=== PATIENT | female | born 1965 | race African-American/Black ===

== ENCOUNTER 2021-08-12 20:00 | Inpatient (IN) | payer OTHER, MEDICAID ==
[~2021-08-12] VITALS: Ht 167.6 cm; Wt 76.7 kg
--- NOTE | 2021-08-12 20:03 | NUR ---
Placed in room 06 . Placed on cardiac sonographer, blood pressure machine and pulse oximeter. To gown for exam. Side rails up.
[2021-08-12] MEDS ORDERED: ASPIRIN 81 MG TAB.CHEW PO ONE (20:15)
--- NOTE | 2021-08-12 20:45 | NUR ---
in to see patient.
[2021-08-12 20:48] VITALS: BP_SYST 145
--- NOTE | 2021-08-12 20:52 | NUR ---
patient arrives with chuck stating full code
[2021-08-12] MEDS ORDERED: BUDE0.5A INH (20:57)
[2021-08-12] MEDS ORDERED: DOCU100T9 GT (20:57)
[2021-08-12] MEDS ORDERED: HYDR-3927 GT (20:57)
[2021-08-12] MEDS ORDERED: DUL5 GT (20:57)
[2021-08-12] MEDS ORDERED: CHLO473M5 PO (20:57)
[2021-08-12] MEDS ORDERED: PULMOCARE GT (20:57)
[2021-08-12] MEDS ORDERED: DIPH25TA62 GT (20:57)
[2021-08-12] MEDS ORDERED: MULT-1193 GT (20:57)
[2021-08-12] MEDS ORDERED: OMEP20CA4 GT (20:57)
[2021-08-12] MEDS ORDERED: LIDVIS100 GT (20:57)
[2021-08-12] MEDS ORDERED: MELA3TAB41 GT (20:57)
[2021-08-12] MEDS ORDERED: ALBU2.5V7 INH ×2 (20:57)
[2021-08-12] MEDS ORDERED: LACT10SO6 GT (20:57)
[2021-08-12] MEDS ORDERED: ASCO500T20 GT (20:57)
[2021-08-12] MEDS ORDERED: RILU50TA8 GT (20:57)
[2021-08-12] MEDS ORDERED: POLY119P15 GT (20:57)
[2021-08-12] MEDS ORDERED: FOLI-43 GT (20:57)
--- NOTE | 2021-08-12 20:57 | NUR ---
COVID AND MRSA SWAB DONE AT BEDSIDE
--- NOTE | 2021-08-12 20:58 | NUR ---
Medication reconciliation completed with information provided by [facility]. Any prior medication reconciliation on file was reviewed and corrected.
--- NOTE | 2021-08-12 21:03 | NUR ---
patient is on the vent. Stated that she came in with chest pain 8/10 but now she does not feel any chest pain after the nitro spray. She states her pain is 3/10.
[2021-08-12] MEDS ORDERED: PIPERACILLIN/TAZO 3.38 GM in D5W 50 ML IV ONE (21:30)
[2021-08-12] MEDS ORDERED: VANCOMYCIN HCL 1,000 MG in D5W 250 ML IV ONE (21:30)
[2021-08-12] MEDS ORDERED: PIPERACILLIN/TAZOBACTAM 3.375 GM/VIAL (ZOSYN) IV ONE (21:39)
--- NOTE | 2021-08-12 22:17 | NUR ---
Verbal order received by Dr Ilya Us for Zofran 4 mg IVP and Morphine 4mg IVP for chest pain.
[2021-08-12] MEDS ORDERED: MORPHINE 4 MG INJ. 4 MG/ML VIAL IVP ONE (22:30)
[2021-08-12] MEDS ORDERED: ONDANSETRON HCL 4 MG/2 ML VIAL IVP ONE (22:30)
[2021-08-12 22:37] LABS: BASOPHILS # (AUTO) 0.1 K/uL (0.0-0.2); BASOPHILS % (AUTO) 0.5 % (0.0-2.0); EOSINOPHILS # (AUTO) 0.1 K/uL (0.0-0.4); EOSINOPHILS % (AUTO) 0.8 % (0.0-4.0); LYMPHOCYTES # (AUTO) 2.1 K/uL (1.0-5.5); LYMPHOCYTES % (AUTO) 12.8 % (20.5-51.5); MEAN CORPUSCULAR HEMOGLOBIN 31 pg (27-31); MEAN CORPUSCULAR HGB CONC 33 % (32-36); MEAN CORPUSCULAR VOLUME 93 fL (79.0-98.0); MONOCYTES # (AUTO) 1.2 K/uL (0.0-1.0); MONOCYTES % (AUTO) 7.5 % (1.7-9.3); NEUTROPHILS # (AUTO) 12.7 K/uL (1.8-7.7); NEUTROPHILS % (AUTO) 78.4 % (40.0-70.0); PLATELET COUNT (AUTO) 242 K/uL (130-430); RED BLOOD CELL COUNT(AUTO) 2.01 MIL/uL (4.2-6.2); RED CELL DISTRIBUTION WIDTH 15.4 % (9.0-15.0); WHITE BLOOD COUNT (AUTO) 16.1 K/uL (4.8-10.8)
[2021-08-12 22:45] LABS: HEMOGLOBIN 6.2 g/dL (12.0-16.0)
[2021-08-12 22:46] LABS: HEMATOCRIT 18.6 % (36-48)
[2021-08-12] MEDS ORDERED: VANCOMYCIN HCL 1000 MG/VIAL IV ONE (22:46)
[2021-08-12 22:51] LABS: ANION GAP 5 (5-15); CALCIUM 9.3 mg/dL (8.4-11.0); CHLORIDE 101 mmol/L (98-107); CREATININE 0.62 mg/dL (0.55-1.30); GLUCOSE 111 mg/dL (70-99); POTASSIUM 4.1 mmol/L (3.5-5.1); SODIUM SERUM 135 mmol/L (136-145); UREA NITROGEN, BLOOD 38 mg/dL (8-21)
[2021-08-12 22:53] LABS: GFR AFRICAN AMERICAN 129 mL/min (>90)
[2021-08-12 23:00] LABS: ALANINE AMINOTRANSFERASE 24 U/L (12-78); ALBUMIN 2.8 g/dL (3.4-4.8); ASPARTATE AMINOTRANSFERASE 17 U/L (10-37); TOTAL BILIRUBIN 0.3 mg/dL (0.0-1.0)
[2021-08-12] MEDS ORDERED: APIXABAN 2.5 MG TABLET PO SCH (23:00)
[2021-08-13] MEDS ORDERED: PANTOPRAZOLE SODIUM 40 MG/VIAL (PROTONIX) IVP ONE (01:30)
[2021-08-13] MEDS ORDERED: ONDANSETRON HCL 4 MG/2 ML VIAL IVP PRN (02:45)
[2021-08-13] MEDS ORDERED: MORPHINE 4 MG INJ. 4 MG/ML VIAL IVP ONE (03:00)
--- NOTE | 2021-08-13 03:35 | NUR ---
Admit bed requested Patient will be admitted to care of Dr Rubio .. Admitted to Tele unit. Diagnosis GI bleed Inpatient (Yes or No) Yes Observation (Yes or No) No Orientation concerns or request close to nursing station (Yes or No) No Covid Status negative On vent or bipap yes Isolation requirements No Needs a sitter No From Home (Yes or if No enter name of facility) No Requires Dialysis (Yes or No) No Med Rec Completed (Yes of No) Yes
--- NOTE | 2021-08-13 04:30 | NUR ---
Patient will be admitted to care of dr woodward. Admitted to unit. Will go to room . Belongings list completed. Complete and up to date summary report printed. SBAR report to be given at bedside with opportunity for questions.
[2021-08-13 05:28] VITALS: BP_SYST 110
[2021-08-13 05:38] VITALS: BP_SYST 115
--- NOTE | 2021-08-13 06:08 | NUR ---
Consultation Paged Reason for Consultation: GI BLEED Was consult called: Y Person who was notified: Ariela Consulting Physician: Dr. Montanez (Corby Lei is special collections librarian) Ordering Physician: Dr. Rubio
--- NOTE | 2021-08-13 06:52 | NUR ---
PT ADMITTED TO [facility] FLOOR , ADMISSION DX GI BLEEDING AND CHEST PAIN, HMG 6.1 ONE UNIT OF RBCS WAS TRANSFUSED, SHE HAS ORDER FOR ANOTHER UNIT STANDBY AFTER Hmgb CHECK.. she on vent, with history of chronic respiratory failure
[2021-08-13] MEDS ORDERED: PANTOPRAZOLE SODIUM 40 MG/VIAL (PROTONIX) ONE (07:00)
[2021-08-13] MEDS: PANTOPRAZOLE SODIUM 40 MG in NS 50 ML IV SCH ×5 (07:45→23:12)
[2021-08-13 08:00] VITALS: BP_SYST 102
[2021-08-13 09:07] LABS: BASOPHILS % (AUTO) 0.2 % (0.0-2.0); EOSINOPHILS % (AUTO) 0.1 % (0.0-4.0); HEMOGLOBIN 7.1 g/dL (12.0-16.0); LYMPHOCYTES # (AUTO) 1.5 K/uL (1.0-5.5); MEAN CORPUSCULAR HEMOGLOBIN 31 pg (27-31); MEAN CORPUSCULAR HGB CONC 33 % (32-36); MEAN CORPUSCULAR VOLUME 94 fL (79.0-98.0); MONOCYTES # (AUTO) 1.5 K/uL (0.0-1.0); MONOCYTES % (AUTO) 8.3 % (1.7-9.3); NEUTROPHILS # (AUTO) 15.2 K/uL (1.8-7.7); NEUTROPHILS % (AUTO) 83.4 % (40.0-70.0); PLATELET COUNT (AUTO) 189 K/uL (130-430); RED BLOOD CELL COUNT(AUTO) 2.28 MIL/uL (4.2-6.2); RED CELL DISTRIBUTION WIDTH 14.7 % (9.0-15.0); WHITE BLOOD COUNT (AUTO) 18.3 K/uL (4.8-10.8)
[2021-08-13] MEDS: D5LR 1,000 ML IV SCH ×2 (09:11→12:45)
[2021-08-13 09:20] LABS: HEMATOCRIT 21.4 % (36-48)
[2021-08-13] MEDS: MORPHINE 4 MG INJ. 4 MG/ML VIAL IVP PRN ×2 (09:52→22:42)
[2021-08-13] MEDS ORDERED: NALOXONE HCL 0.4 MG/ML AMP (NARCAN) IVP PRN (10:15)
--- NOTE | 2021-08-13 10:28 | NUR ---
CONSULTATION PAGED/CALLED Reason for Consultation: CP Person Who was Notified: DR LOFTON OFFICE Consulting Physician: VENUS MAYA Ordering Physician: HORTENCIA VALENTIN
--- NOTE | 2021-08-13 10:39 | NUR ---
CONSULTATION PAGED/CALLED Reason for Consultation: RESP FAILURE Person Who was Notified: JUAQUIN Consulting Physician: FRANCISCA CAIN Ordering Physician: HORTENCIA VALENTIN
[2021-08-13 11:38] VITALS: BP_SYST 111
[2021-08-13] MEDS: DIPHENHYDRAMINE HCL 25 MG CAPSULE GT PRN ×2 (12:21→22:41)
[2021-08-13 15:39] VITALS: BP_SYST 118
[2021-08-13] MEDS: BUDESONIDE 0.5 MG/2 ML AMPUL.NEB INH SCH (19:55)
[2021-08-13 20:11] VITALS: BP_SYST 95
--- NOTE | 2021-08-13 20:16 | NUR ---
RECEIVED PT LYING DOWN, NO DISTRESS NOTED, DENIES PAIN. ON [facility] VENT SETTING TV-35, AC:16, PEE-5. O2 SAT 100%. COMMUNICATING VIA IPAD. IV TO RT WRIST SITE CDI. Addendum: 08/13/21 at 2319 by [employer] special education teacher 2316: PT ID IS NOT WORKING, NOTIFIED CHARGE NURSE TO PLEASE PRINT ANOTHER. Addendum: 08/14/21 at 0023 by [employer] special education teacher 0020: @2245 PT'S DAUGHTER BROUGHT CORRECT TUBING FOR PT'S GT. STARTED FEEDING AT 2245. STOPPED FEEDING AT 0000. PT IS NOW NPO. PT REFUSED REPOSITIONING AT THIS TIME. WILL ATTEMPT AGAIN SHORTLY Addendum: 08/14/21 at 0452 by Sierra Spence RN 0400: PT DOES NOT WANT TO BE REPOSITIONED, SHE STATED "I WANT TO SLEEP, I NEED MY REST"
[2021-08-13] MEDS: LACTULOSE 20 GM/30 ML UDC GT SCH (21:00)
[2021-08-13] MEDS: LIDOCAINE VISCOUS 2%, 15 ML UDC MM SCH (21:00)
[2021-08-13] MEDS: DOCUSATE SODIUM 100 MG/10 ML UDC GT SCH (21:00)
[2021-08-13 21:16] LABS: TOTAL IRON BIND. CAPACITY 183 ug/dL (250-450)
[2021-08-13] MEDS: BISACODYL 5 MG TABLET.DR (DULCOLAX) GT SCH (22:41)
[2021-08-13] MEDS: FOLIC ACID 1 MG TABLET GT SCH (22:41)
[2021-08-13] MEDS: MELATONIN 3 MG TABLET GT SCH (22:56)
[2021-08-13] MEDS ORDERED: MELATONIN 3 MG TABLET ONE (22:57)
[2021-08-13] MEDS: CHLORHEXIDINE GLUCONATE 15 ML/DOSE, 480 ML MM SCH (23:00)
[2021-08-14 00:11] VITALS: BP_SYST 110
[2021-08-14 00:23] VITALS: BP_SYST 97
[2021-08-14] MEDS: PANTOPRAZOLE SODIUM 40 MG in NS 50 ML IV SCH ×4 (03:45→18:02)
[2021-08-14] MEDS: MORPHINE 4 MG INJ. 4 MG/ML VIAL IVP PRN ×3 (06:05→21:09)
[2021-08-14 06:18] LABS: BASOPHILS % (AUTO) 0.2 % (0.0-2.0); EOSINOPHILS # (AUTO) 0.1 K/uL (0.0-0.4); EOSINOPHILS % (AUTO) 0.6 % (0.0-4.0); HEMOGLOBIN 7.2 g/dL (12.0-16.0); LYMPHOCYTES # (AUTO) 1.2 K/uL (1.0-5.5); LYMPHOCYTES % (AUTO) 8.2 % (20.5-51.5); MEAN CORPUSCULAR HEMOGLOBIN 30 pg (27-31); MEAN CORPUSCULAR HGB CONC 33 % (32-36); MEAN CORPUSCULAR VOLUME 90 fL (79.0-98.0); MONOCYTES % (AUTO) 6.8 % (1.7-9.3); NEUTROPHILS # (AUTO) 12.1 K/uL (1.8-7.7); NEUTROPHILS % (AUTO) 84.2 % (40.0-70.0); PLATELET COUNT (AUTO) 163 K/uL (130-430); RED CELL DISTRIBUTION WIDTH 16.7 % (9.0-15.0); WHITE BLOOD COUNT (AUTO) 14.4 K/uL (4.8-10.8)
[2021-08-14 06:50] LABS: ALBUMIN 2.4 g/dL (3.4-4.8); CALCIUM 8.4 mg/dL (8.4-11.0); CREATININE 0.49 mg/dL (0.55-1.30); POTASSIUM 3.7 mmol/L (3.5-5.1); TOTAL BILIRUBIN 0.4 mg/dL (0.0-1.0)
[2021-08-14] MEDS ORDERED: SIMETHICONE 40 MG/0.6 ML ML ONE (07:19)
[2021-08-14] MEDS ORDERED: MEPERIDINE 100 MG INJ. 100 MG/ML VIAL ONE (07:20)
[2021-08-14] MEDS ORDERED: BENZOCAINE 20% 0.5mL UD SPRAY MM ONE (07:29)
[2021-08-14] MEDS: MIDAZOLAM HCL 5 MG/5 ML VIAL ONE ×5 (07:50→08:02)
[2021-08-14] MEDS: fentaNYL CITRATE/PF 100 MCG/2 ML AMP ONE ×3 (07:50→07:55)
[2021-08-14 08:00] VITALS: BP_SYST 104
[2021-08-14] MEDS ORDERED: DIPHENHYDRAMINE INJ 50 MG/ML VIAL IVP ONE (08:04)
[2021-08-14] MEDS ORDERED: DIPHENHYDRAMINE INJ 50 MG/ML VIAL ONE ×2 (08:08→08:30)
[2021-08-14] MEDS ORDERED: MIDAZOLAM HCL 5 MG/5 ML VIAL ONE (08:08)
[2021-08-14] MEDS ORDERED: MIDAZOLAM HCL 5 MG/5 ML VIAL IVP ONE (08:09)
[2021-08-14] MEDS: D5LR 1,000 ML IV SCH ×3 (08:45→18:01)
[2021-08-14] MEDS ORDERED: OMEPRAZOLE Non-Formulary 20 MG CAPSULE.DR GT SCH (09:00)
[2021-08-14] MEDS: DOCUSATE SODIUM 100 MG/10 ML UDC GT SCH ×2 (09:00→21:00)
[2021-08-14] MEDS: RILUZOLE 50 MG TABLET GT SCH ×2 (09:00→21:06)
[2021-08-14] MEDS: POLYETHYLENE GLYCOL 3350, 17 GM/ POWD.PACK GT SCH (09:00)
[2021-08-14] MEDS: BUDESONIDE 0.5 MG/2 ML AMPUL.NEB INH SCH ×2 (09:03→20:14)
[2021-08-14 09:06] LABS: HEMATOCRIT 21.6 % (36-48)
[2021-08-14] MEDS: ASCORBIC ACID 500 MG TABLET GT SCH (09:39)
[2021-08-14] MEDS: CHLORHEXIDINE GLUCONATE 15 ML/DOSE, 480 ML MM SCH ×2 (09:39→21:33)
[2021-08-14] MEDS: MULTIVITS,CA,MINERALS/IRON/FA 1 TABLET PO SCH (09:39)
[2021-08-14] MEDS: DIPHENHYDRAMINE HCL 25 MG CAPSULE GT PRN (09:39)
[2021-08-14] MEDS: SOD FERRIC GLUC COMPLEX/SUC 125 MG in NS 100 ML IV SCH (12:12)
[2021-08-14 12:22] VITALS: BP_SYST 91
[2021-08-14 16:14] VITALS: BP_SYST 96
[2021-08-14] MEDS ORDERED: BISACODYL 5 MG TABLET.DR (DULCOLAX) PO ONE (17:00)
[2021-08-14] MEDS ORDERED: GOLYTELY / COLYTE SOLUTION 4 LITERS PO ONE (18:00)
--- NOTE | 2021-08-14 19:14 | NUR ---
RECEIVED PT LYING IN BED, NO DISTRESS NOTED, DENIES PAIN. EXPLAINED POC IN REGARDS TO BOWEL PREP, VERBALIZED UNDERSTANDING. Addendum: 08/15/21 at 0103 by William Spence RN 5: PT IS ASKING FOR GOLYTELY TO BE GIVEN INCREMENTS. THEREFORE BE GIVING 400ML EVERY 2 HOURS Addendum: 08/15/21 at 010 by William Spence RN 106: GT CONNECTOR WAS LEAKING CHANGED PORT. Addendum: 08/15/21 at 0224 by [employer] cpas 5: PT REFUSED GOLYTELY AT THIS TIME. STATES HER STOMACH FEELS UNCOMFORTABLE. ENCOURAGED PT IF NOT NOW THEN AT 040, PT STATED "WELL SEE" Addendum: 08/15/21 at 0459 by [employer] cpas 0430: PT REFUSED GOLYTELY.
[2021-08-14 20:00] VITALS: BP_SYST 121
[2021-08-14] MEDS: BISACODYL 5 MG TABLET.DR (DULCOLAX) GT SCH (21:00)
[2021-08-14] MEDS: LACTULOSE 20 GM/30 ML UDC GT SCH (21:00)
[2021-08-14] MEDS: LIDOCAINE VISCOUS 2%, 15 ML UDC MM SCH (21:00)
[2021-08-14] MEDS: FOLIC ACID 1 MG TABLET GT SCH (21:06)
[2021-08-14] MEDS: MELATONIN 3 MG TABLET GT SCH (21:07)
[2021-08-15] VITALS: BP_SYST 115
[2021-08-15] MEDS: PANTOPRAZOLE SODIUM 40 MG in NS 50 ML IV SCH (00:25)
[2021-08-15] MEDS: D5LR 1,000 ML IV SCH ×2 (04:45→14:45)
[2021-08-15 06:05] LABS: BASOPHILS % (AUTO) 0.5 % (0.0-2.0); EOSINOPHILS # (AUTO) 0.2 K/uL (0.0-0.4); EOSINOPHILS % (AUTO) 2.2 % (0.0-4.0); LYMPHOCYTES # (AUTO) 1.8 K/uL (1.0-5.5); LYMPHOCYTES % (AUTO) 18.8 % (20.5-51.5); MEAN CORPUSCULAR HEMOGLOBIN 31 pg (27-31); MEAN CORPUSCULAR HGB CONC 34 % (32-36); MEAN CORPUSCULAR VOLUME 91 fL (79.0-98.0); MONOCYTES # (AUTO) 0.8 K/uL (0.0-1.0); MONOCYTES % (AUTO) 8.2 % (1.7-9.3); NEUTROPHILS # (AUTO) 6.8 K/uL (1.8-7.7); NEUTROPHILS % (AUTO) 70.3 % (40.0-70.0); PLATELET COUNT (AUTO) 165 K/uL (130-430); RED BLOOD CELL COUNT(AUTO) 2.11 MIL/uL (4.2-6.2); RED CELL DISTRIBUTION WIDTH 16.5 % (9.0-15.0); RETICULOCYTE COUNT 5.7 % (0.5-1.5); WHITE BLOOD COUNT (AUTO) 9.6 K/uL (4.8-10.8)
[2021-08-15 06:26] LABS: CALCIUM 8.6 mg/dL (8.4-11.0); CREATININE 0.5 mg/dL (0.55-1.30); POTASSIUM 3.3 mmol/L (3.5-5.1)
[2021-08-15] MEDS: BUDESONIDE 0.5 MG/2 ML AMPUL.NEB INH SCH ×2 (07:09→19:11)
[2021-08-15 07:26] LABS: HEMATOCRIT 19.3 % (36-48); HEMOGLOBIN 6.5 g/dL (12.0-16.0)
[2021-08-15] MEDS ORDERED: ONDANSETRON HCL 4 MG/2 ML VIAL ONE (07:26)
[2021-08-15] MEDS ORDERED: MEPERIDINE 100 MG INJ. 100 MG/ML VIAL ONE (07:27)
[2021-08-15] MEDS ORDERED: MIDAZOLAM HCL 5 MG/5 ML VIAL ONE (07:39)
[2021-08-15 08:00] VITALS: BP_SYST 112
[2021-08-15] MEDS: MIDAZOLAM HCL 5 MG/5 ML VIAL ONE ×2 (08:13→08:15)
[2021-08-15] MEDS ORDERED: BISACODYL 5 MG TABLET.DR (DULCOLAX) PO ONE (08:45)
[2021-08-15] MEDS ORDERED: MAGNESIUM CITRATE 300 ML ORAL SOLUTION PO ONE (08:45)
[2021-08-15] MEDS ORDERED: DIPHENHYDRAMINE INJ 50 MG/ML VIAL ONE (08:54)
[2021-08-15] MEDS: POLYETHYLENE GLYCOL 3350, 17 GM/ POWD.PACK GT SCH (09:55)
[2021-08-15] MEDS: RILUZOLE 50 MG TABLET GT SCH ×2 (09:58→21:00)
[2021-08-15] MEDS: ASCORBIC ACID 500 MG TABLET GT SCH (09:58)
[2021-08-15] MEDS: MULTIVITS,CA,MINERALS/IRON/FA 1 TABLET PO SCH (09:58)
[2021-08-15] MEDS: DOCUSATE SODIUM 100 MG/10 ML UDC GT SCH ×2 (10:01→20:45)
[2021-08-15] MEDS: CHLORHEXIDINE GLUCONATE 15 ML/DOSE, 480 ML MM SCH ×2 (10:02→21:00)
[2021-08-15] MEDS ORDERED: POTASSIUM CHLORIDE 20 MEQ/PKT PACKET PO ONE (10:30)
[2021-08-15] MEDS: SOD FERRIC GLUC COMPLEX/SUC 125 MG in NS 100 ML IV SCH (12:17)
[2021-08-15 12:52] VITALS: BP_SYST 118
--- NOTE | 2021-08-15 13:45 | NUR ---
blood transfusion started,observed for any transfusion reaction
--- NOTE | 2021-08-15 14:26 | NUR ---
Dietitian Recommendations * Consider ST swallow eval prior to PO diet advancement (PO diet BANKRUPTCY PROCESSOR: Regular/Pureed per nursing assessment) * Consider Vital AF 1.2 at 60 ml/hr (goal rate), Free Water Flush: 150 ml Q6h via GT if/when medically appropriate Provides: 1728 kcal/day, 108 gm protein/day, and 1768 ml free water/day Meets: 98% of lower end of estimated caloric needs, 92% of upper end of estimated protein needs, and 98% of lower end of estimated fluid needs LP, RD Please refer to Nutrition Assessment for details. Addendum: 08/15/21 at [address] Amended: Links added.
[2021-08-15 16:00] VITALS: BP_SYST 115
[2021-08-15] MEDS: MORPHINE 4 MG INJ. 4 MG/ML VIAL IVP PRN ×2 (17:26→23:12)
--- NOTE | 2021-08-15 17:40 | NUR ---
blood transfusion done at 1730 no reaction noted.
[2021-08-15] MEDS ORDERED: GOLYTELY / COLYTE SOLUTION 4 LITERS PO ONE (18:00)
--- NOTE | 2021-08-15 19:30 | NUR ---
Opening note Received report from day shift. Pt is a/o x4 trach to vent. No s/s of respiratory distress. Breathing even and unlabored. IV site is intact and patent with fluids running at ordered rate. Golytely at bedside to be continued for colonoscopy tomorrow. Fall and safety precautions in place with bed in lowest position, bed alarm on, and call light within reach.
[2021-08-15] MEDS: LACTULOSE 20 GM/30 ML UDC GT SCH (20:44)
[2021-08-15] MEDS: BISACODYL 5 MG TABLET.DR (DULCOLAX) GT SCH (20:44)
[2021-08-15] MEDS: DIPHENHYDRAMINE HCL 25 MG CAPSULE GT PRN (20:44)
[2021-08-15] MEDS: FOLIC ACID 1 MG TABLET GT SCH (20:44)
[2021-08-15] MEDS: LIDOCAINE VISCOUS 2%, 15 ML UDC MM SCH (21:00)
[2021-08-15] MEDS: MELATONIN 3 MG TABLET GT SCH (21:02)
--- NOTE | 2021-08-16 00:15 | NUR ---
Rounds Pt resting quietly in bed. Suctioned as needed. No s/s of acute distress. Fall and safety checks in place.
[2021-08-16 00:24] VITALS: BP_SYST 127
[2021-08-16] MEDS: D5LR 1,000 ML IV SCH ×2 (00:45→10:45)
[2021-08-16] MEDS: MORPHINE 4 MG INJ. 4 MG/ML VIAL IVP PRN ×2 (06:21→16:25)
--- NOTE | 2021-08-16 06:54 | NUR ---
Closing note Pt resting comfortably in bed. No s/s of respiratory distress. Breathing even and unlabored. Pt refused AM tap water enema and asked if it can be done later, will endorse to day shift RN. IV site intact and patent with fluids running at ordered rate. Fall and safety precautions in place with bed in lowest position, bed alarm on, and call light within reach
[2021-08-16] MEDS: BUDESONIDE 0.5 MG/2 ML AMPUL.NEB INH SCH ×2 (07:21→19:00)
[2021-08-16] MEDS ORDERED: BUDESONIDE 0.5 MG/2 ML AMPUL.NEB ONE (07:47)
[2021-08-16 08:00] VITALS: BP_SYST 115
--- NOTE | 2021-08-16 08:00 | NUR ---
Morning notes: Pt A/Ox4, resting in bed. NO s/s of respiratory or cardiac distress, Vent setting AC 14, Vt 450, O2 30%, PEEP 5. R hand IV site is clean dry and intact with ordered fluids running. Fall, safety and respiratory precautions in place, call light within reach, will continue to monitor.
[2021-08-16] MEDS: RILUZOLE 50 MG TABLET GT SCH (09:00)
[2021-08-16] MEDS: ASCORBIC ACID 500 MG TABLET GT SCH (09:22)
[2021-08-16] MEDS: MULTIVITS,CA,MINERALS/IRON/FA 1 TABLET PO SCH (09:22)
[2021-08-16] MEDS: DOCUSATE SODIUM 100 MG/10 ML UDC GT SCH (09:25)
[2021-08-16] MEDS: POTASSIUM CHLORIDE 20 MEQ/PKT PACKET PO SCH (09:25)
[2021-08-16] MEDS: POLYETHYLENE GLYCOL 3350, 17 GM/ POWD.PACK GT SCH (09:25)
[2021-08-16] MEDS ORDERED: DOCUSATE SODIUM 100 MG/10 ML UDC ONE (09:27)
[2021-08-16] MEDS: ALBUTEROL SULFATE 0.083% 2.5 MG/3 ML VIAL.NEB INH PRN (11:48)
[2021-08-16 12:00] VITALS: BP_SYST 135
[2021-08-16] MEDS: SOD FERRIC GLUC COMPLEX/SUC 125 MG in NS 100 ML IV SCH (12:37)
[2021-08-16 12:56] LABS: BASOPHILS % (AUTO) 0.5 % (0.0-2.0); EOSINOPHILS # (AUTO) 0.2 K/uL (0.0-0.4); EOSINOPHILS % (AUTO) 2.8 % (0.0-4.0); HEMATOCRIT 26.7 % (36-48); LYMPHOCYTES % (AUTO) 13.4 % (20.5-51.5); MEAN CORPUSCULAR HEMOGLOBIN 31 pg (27-31); MEAN CORPUSCULAR HGB CONC 34 % (32-36); MEAN CORPUSCULAR VOLUME 92 fL (79.0-98.0); MONOCYTES # (AUTO) 0.5 K/uL (0.0-1.0); MONOCYTES % (AUTO) 6.3 % (1.7-9.3); PLATELET COUNT (AUTO) 227 K/uL (130-430); RED BLOOD CELL COUNT(AUTO) 2.89 MIL/uL (4.2-6.2); RED CELL DISTRIBUTION WIDTH 15.6 % (9.0-15.0); WHITE BLOOD COUNT (AUTO) 7.8 K/uL (4.8-10.8)
[2021-08-16 13:08] LABS: CALCIUM 9.4 mg/dL (8.4-11.0); CREATININE 0.47 mg/dL (0.55-1.30); POTASSIUM 4.1 mmol/L (3.5-5.1)
[2021-08-16] MEDS ORDERED: SIMETHICONE 40 MG/0.6 ML ML ONE (13:29)
[2021-08-16] MEDS ORDERED: MEPERIDINE 100 MG INJ. 100 MG/ML VIAL ONE (13:29)
[2021-08-16] MEDS ORDERED: MIDAZOLAM HCL 5 MG/5 ML VIAL ONE (13:30)
[2021-08-16 16:25] VITALS: BP_SYST 130
[2021-08-16] MEDS ORDERED: iohexoL 300 mgI/mL, 150 ML INFUS..BTL IV ONE (18:10)
--- NOTE | 2021-08-16 18:55 | NUR ---
Closing notes: Pt A/Ox4, resting in bed. NO s/s of respiratory or cardiac distress, Vent setting AC 14, Vt 450, O2 30%, PEEP 5. R hand IV site is clean dry and intact with ordered fluids running. Fall, safety and respiratory precautions in place, call light within reach, will endorse to material handler 1st shift.
[2021-08-16] MEDS: LIDOCAINE VISCOUS 2%, 15 ML UDC MM SCH (21:00)
[2021-08-17] MEDS: ALBUTEROL SULFATE 0.083% 2.5 MG/3 ML VIAL.NEB INH PRN (00:21)
[2021-08-17] MEDS: LACTULOSE 20 GM/30 ML UDC GT SCH ×2 (00:38→21:00)
[2021-08-17] MEDS: BISACODYL 5 MG TABLET.DR (DULCOLAX) GT SCH ×2 (00:39→21:00)
[2021-08-17] MEDS: DOCUSATE SODIUM 100 MG/10 ML UDC GT SCH ×3 (00:39→21:00)
[2021-08-17] MEDS: RILUZOLE 50 MG TABLET GT SCH ×3 (00:40→21:36)
[2021-08-17] MEDS: FOLIC ACID 1 MG TABLET GT SCH ×2 (00:40→21:36)
[2021-08-17] MEDS: DIPHENHYDRAMINE HCL 25 MG CAPSULE GT PRN (00:41)
[2021-08-17] MEDS: CHLORHEXIDINE GLUC 0.12% 15 ML MOUTHWASH UDC MM SCH ×3 (00:41→21:00)
[2021-08-17] MEDS: MELATONIN 3 MG TABLET GT SCH ×2 (00:42→21:37)
[2021-08-17 00:52] VITALS: BP_SYST 147
[2021-08-17] MEDS: MORPHINE 4 MG INJ. 4 MG/ML VIAL IVP PRN ×2 (01:20→02:54)
[2021-08-17] MEDS: HYDROcodone/ACETAMIN 10-325 MG TAB GT PRN ×4 (02:45→21:47)
[2021-08-17] MEDS: D5LR 1,000 ML IV SCH ×3 (06:45→16:45)
[2021-08-17] MEDS: BUDESONIDE 0.5 MG/2 ML AMPUL.NEB INH SCH ×2 (07:00→19:00)
[2021-08-17] MEDS: POLYETHYLENE GLYCOL 3350, 17 GM/ POWD.PACK GT SCH (07:52)
[2021-08-17] MEDS: MULTIVITS,CA,MINERALS/IRON/FA 1 TABLET PO SCH (07:52)
[2021-08-17] MEDS: ASCORBIC ACID 500 MG TABLET GT SCH (07:52)
[2021-08-17] MEDS: POTASSIUM CHLORIDE 20 MEQ/PKT PACKET PO SCH (07:52)
[2021-08-17 08:00] VITALS: BP_SYST 135
--- NOTE | 2021-08-17 08:00 | NUR ---
Morning notes: Pt A/Ox4, resting in bed. No s/s of respiratory or cardiac distress, Vent setting AC 14, Vt 450, O2 30%, PEEP 5. R forearm IV site is clean dry and intact with ordered fluids running. Fall, safety and respiratory precautions in place, call light within reach, will continue to monitor.
[2021-08-17 08:21] LABS: BASOPHILS % (AUTO) 0.5 % (0.0-2.0); EOSINOPHILS # (AUTO) 0.3 K/uL (0.0-0.4); EOSINOPHILS % (AUTO) 2.9 % (0.0-4.0); HEMATOCRIT 25.4 % (36-48); HEMOGLOBIN 8.7 g/dL (12.0-16.0); LYMPHOCYTES # (AUTO) 1.8 K/uL (1.0-5.5); MEAN CORPUSCULAR HEMOGLOBIN 31 pg (27-31); MEAN CORPUSCULAR HGB CONC 34 % (32-36); MEAN CORPUSCULAR VOLUME 92 fL (79.0-98.0); MONOCYTES # (AUTO) 0.6 K/uL (0.0-1.0); MONOCYTES % (AUTO) 6.3 % (1.7-9.3); NEUTROPHILS # (AUTO) 6.3 K/uL (1.8-7.7); NEUTROPHILS % (AUTO) 70.3 % (40.0-70.0); PLATELET COUNT (AUTO) 236 K/uL (130-430); RED BLOOD CELL COUNT(AUTO) 2.77 MIL/uL (4.2-6.2); RED CELL DISTRIBUTION WIDTH 15.5 % (9.0-15.0); WHITE BLOOD COUNT (AUTO) 8.9 K/uL (4.8-10.8)
[2021-08-17 09:03] LABS: CALCIUM 9.4 mg/dL (8.4-11.0); CREATININE 0.49 mg/dL (0.55-1.30); POTASSIUM 3.6 mmol/L (3.5-5.1)
[2021-08-17] MEDS: SOD FERRIC GLUC COMPLEX/SUC 125 MG in NS 100 ML IV SCH (12:29)
--- NOTE | 2021-08-17 16:20 | NUR ---
RN note: Page Dr. Montanez about recommendation of CT scan options.
[2021-08-17 16:30] VITALS: BP_SYST 145
--- NOTE | 2021-08-17 18:00 | NUR ---
RN Note: Dr Montanez wants to do a CT of the abd and pelvis with IV and oral contrast. Will confirm with radiology.
[2021-08-17] MEDS ORDERED: DIATR MEGLU/DIATRIZ SOD 30 ML SOLUTION PO ONE (18:13)
--- NOTE | 2021-08-17 18:55 | NUR ---
Closing notes: Pt A/Ox4, resting in bed. NO s/s of respiratory or cardiac distress, Vent setting AC 14, Vt 450, O2 30%, PEEP 5. R forearm IV site is clean dry and intact with ordered fluids running. Oral contrast at bedside, started but not completed. Fall, safety and respiratory precautions in place, call light within reach, will endorse to night cleaner.
[2021-08-17 20:00] VITALS: BP_SYST 143
--- NOTE | 2021-08-17 20:00 | NUR ---
RECEIVED PT FROM DAY SHIFT, PT A/OX4 TRACH TO VENT, NO S/S OF RESPIRATORY DISTRESS NOTED, BREATHING EVEN AND UNLABORED, IV SITE IS INTACT AND PATENT WITH FLUIDS RUNNING AT ORDERED RATE. FALL AND SAFETY PRECAUTIONS IN PLACE WITH BED IN LOWEST POSITION, BED ALARM ON, AND CALL LIGHT WITHIN REACH, WILL CONTINUE TO MONITOR.
[2021-08-17] MEDS: LIDOCAINE VISCOUS 2%, 15 ML UDC MM SCH (21:00)
--- NOTE | 2021-08-18 | NUR ---
NO CHANGES NOTED FROM THE PREVIOUS ASSESSMENT, WILL CONTINUE TO MONITOR.
[2021-08-18 00:48] VITALS: BP_SYST 115
[2021-08-18] MEDS: D5LR 1,000 ML IV SCH ×3 (03:16→23:34)
--- NOTE | 2021-08-18 06:12 | NUR ---
PT RESTING COMFORTABLY IN BED, NO S/S OF DISTRESS OR DISCOMFORT NOTED, BREATHING EVEN AND UNLABORED, ALL FALL PROTOCOLS IN PLACE, WILL CONTINUE TO MONITOR AND ENDORSED TO INCOMING AM NURSE.
--- NOTE | 2021-08-18 07:17 | NUR ---
REPORT GIVEN TO EJ LAWRENCE FOR CONTINUITY OF CARE ALL QUESTIONS WERE ANSWERED AND RN VERBALIZED UNDERSTANDING.
--- NOTE | 2021-08-18 07:30 | NUR ---
RECEIVED PT FROM MELINDA HERNANDEZ. ASSUMED CARE.
[2021-08-18] MEDS: BUDESONIDE 0.5 MG/2 ML AMPUL.NEB INH SCH (07:36)
[2021-08-18 08:00] VITALS: BP_SYST 131
[2021-08-18] MEDS: ALBUTEROL SULFATE 0.083% 2.5 MG/3 ML VIAL.NEB INH PRN (08:55)
[2021-08-18 08:59] LABS: BASOPHILS % (AUTO) 0.4 % (0.0-2.0); EOSINOPHILS # (AUTO) 0.1 K/uL (0.0-0.4); EOSINOPHILS % (AUTO) 1.9 % (0.0-4.0); HEMATOCRIT 30.8 % (36-48); HEMOGLOBIN 10.5 g/dL (12.0-16.0); LYMPHOCYTES # (AUTO) 0.8 K/uL (1.0-5.5); MEAN CORPUSCULAR HEMOGLOBIN 31 pg (27-31); MEAN CORPUSCULAR HGB CONC 34 % (32-36); MEAN CORPUSCULAR VOLUME 92 fL (79.0-98.0); MONOCYTES # (AUTO) 0.4 K/uL (0.0-1.0); MONOCYTES % (AUTO) 5.4 % (1.7-9.3); NEUTROPHILS # (AUTO) 6.2 K/uL (1.8-7.7); NEUTROPHILS % (AUTO) 81.3 % (40.0-70.0); PLATELET COUNT (AUTO) 268 K/uL (130-430); RED BLOOD CELL COUNT(AUTO) 3.35 MIL/uL (4.2-6.2); RED CELL DISTRIBUTION WIDTH 16.3 % (9.0-15.0); WHITE BLOOD COUNT (AUTO) 7.6 K/uL (4.8-10.8)
[2021-08-18] MEDS: CHLORHEXIDINE GLUC 0.12% 15 ML MOUTHWASH UDC MM SCH ×2 (09:00→21:00)
[2021-08-18] MEDS: POLYETHYLENE GLYCOL 3350, 17 GM/ POWD.PACK GT SCH (09:00)
[2021-08-18] MEDS: DOCUSATE SODIUM 100 MG/10 ML UDC GT SCH ×2 (09:00→21:00)
[2021-08-18] MEDS: RILUZOLE 50 MG TABLET GT SCH ×2 (09:17→21:14)
[2021-08-18] MEDS: ASCORBIC ACID 500 MG TABLET GT SCH (09:18)
[2021-08-18] MEDS: MULTIVITS,CA,MINERALS/IRON/FA 1 TABLET PO SCH (09:18)
[2021-08-18] MEDS: DIPHENHYDRAMINE HCL 25 MG CAPSULE GT PRN ×2 (09:18→21:22)
[2021-08-18] MEDS: HYDROcodone/ACETAMIN 10-325 MG TAB GT PRN ×2 (09:19→21:14)
[2021-08-18] MEDS: POTASSIUM CHLORIDE 20 MEQ/PKT PACKET PO SCH (09:19)
--- NOTE | 2021-08-18 09:20 | NUR ---
NORCO PRN GIVEN FOR GENERALIZED PAIN, BENEDRYL FOR ITCHING, PT REFUSED STOOL SOFTNERS, STATED SHE HAS LOOSE STOOLS. PT HAD LARGE BM, WAS CHANGED AND REPOSITIONED.
[2021-08-18 09:31] LABS: ALBUMIN 2.4 g/dL (3.4-4.8); CALCIUM 9.7 mg/dL (8.4-11.0); CREATININE 0.49 mg/dL (0.55-1.30); POTASSIUM 3.7 mmol/L (3.5-5.1); TOTAL BILIRUBIN 0.3 mg/dL (0.0-1.0)
[2021-08-18 11:22] VITALS: BP_SYST 119
[2021-08-18] MEDS: SOD FERRIC GLUC COMPLEX/SUC 125 MG in NS 100 ML IV SCH (12:55)
[2021-08-18 15:06] LABS: FERRITIN 303 ng/mL (15-150)
--- NOTE | 2021-08-18 16:43 | NUR ---
PAGED DR FIERRO FOR GI CLEARANCE TO DISCHARGE CLEARANCE FOR PT, WAITING FOR CALL BACK, DR. VALENTIN AWARE. CASE MANAGEMENT STATED THAT PT SNF DOES NOT RESPOND TO CALL FOR TRANSFER ORDERS. PT WILL NOT LEAVE FOR SNF UNTIL TOMORROW.
[2021-08-18 16:50] VITALS: BP_SYST 123
--- NOTE | 2021-08-18 19:26 | NUR ---
ENDORSED PT TO MELINDA CUEVAS. ALL QUESTIONS AND CONCERNS ADDRESSED.
[2021-08-18 20:29] VITALS: BP_SYST 124
[2021-08-18] MEDS: LACTULOSE 20 GM/30 ML UDC GT SCH (21:00)
[2021-08-18] MEDS: LIDOCAINE VISCOUS 2%, 15 ML UDC MM SCH (21:00)
[2021-08-18] MEDS: BISACODYL 5 MG TABLET.DR (DULCOLAX) GT SCH (21:00)
[2021-08-18] MEDS: FOLIC ACID 1 MG TABLET GT SCH (21:13)
[2021-08-18] MEDS: MELATONIN 3 MG TABLET GT SCH (21:14)
[2021-08-19] VITALS: BP_SYST 122
--- NOTE | 2021-08-19 | NUR ---
NO CHANGES NOTED FROM THE PREVIOUS ASSESSMENT, WILL CONTINUE TO MONITOR.
[2021-08-19] MEDS: BUDESONIDE 0.5 MG/2 ML AMPUL.NEB INH SCH ×2 (00:49→08:35)
--- NOTE | 2021-08-19 07:32 | NUR ---
REPORT GIVEN TO OBDULIA LAWRENCE FOR CONTINUITY OF CARE ALL QUESTIONS WERE ANSWERED AND RN VERBALIZED UNDERSTANDING.
--- NOTE | 2021-08-19 08:12 | NUR ---
INITIAL ROUNDS Received pt AAOx4, no s/s resp distress, on vent via trach, vent settings verified. IVF infusing well to RFA at ordered rate with no s/s infiltration to site. Jevity 1.2 infusing well at ordered rate via g-tube with no residual noted. HOB elevated for aspiration precautions. Pt c/o back pain and pain down left side-will check on pain medications. Pt urinated, pt cleaned up and fresh chux placed. Pt repositioned with pillow support and heels off-loaded for skin care and comfort. Oral care provided. Side rails up x3, bed alarm on for safety. Call light within reach.
[2021-08-19 08:25] VITALS: BP_SYST 134
[2021-08-19] MEDS: DOCUSATE SODIUM 100 MG/10 ML UDC GT SCH (08:48)
[2021-08-19] MEDS: CHLORHEXIDINE GLUC 0.12% 15 ML MOUTHWASH UDC MM SCH (08:48)
[2021-08-19] MEDS: RILUZOLE 50 MG TABLET GT SCH (08:49)
[2021-08-19] MEDS: POTASSIUM CHLORIDE 20 MEQ/PKT PACKET PO SCH (08:49)
[2021-08-19] MEDS: MULTIVITS,CA,MINERALS/IRON/FA 1 TABLET PO SCH (08:49)
[2021-08-19] MEDS: MORPHINE 4 MG INJ. 4 MG/ML VIAL IVP PRN ×2 (08:53→15:30)
[2021-08-19] MEDS: POLYETHYLENE GLYCOL 3350, 17 GM/ POWD.PACK GT SCH (09:00)
[2021-08-19] MEDS: ASCORBIC ACID 500 MG TABLET GT SCH (09:00)
--- NOTE | 2021-08-19 09:52 | NUR ---
Discharge Planning: MICHELEP arranged transport with [facility] [phone] 3:30pm BLS w/RT to [facility] [phone] Rm [id number]. DCP made Cm aware and nurse. Patient packet taken to nurse station.
[2021-08-19] MEDS: SOD FERRIC GLUC COMPLEX/SUC 125 MG in NS 100 ML IV SCH (13:15)
[2021-08-19] MEDS: D5LR 1,000 ML IV SCH (13:18)
[2021-08-19 15:06] VITALS: BP_SYST 125
--- NOTE | 2021-08-19 15:40 | NUR ---
PT TRANSFERRED Report given to Carlos LAWRENCE at [facility]. Transfer packet with Transfer Orders and Medication Reconciliation form given to EMT with report. Exitcare provided. [facility] ID band removed, replaced with ID band with pt's name and . IV catheter removed, intact and dressing applied, no active bleeding. G-tube clamped and flushed. All belongings sent with patient. Patient left floor via gurney escorted by EMT in no distress.
== END 2021-08-19 15:40 | DRG 378 ==
LOC: SED 20:00 → STU 08-13 02:39
PROVIDERS: ADMIT Internal Medicine; ATTEND Internal Medicine
PROC: 5A1955Z Respiratory Ventilation, Greater than 96 Consecutive Hours (ICD-10-PCS; principal; 2021-08-12)
PROC: 30233N1 Transfusion of Nonautologous Red Blood Cells into Peripheral Vein, Percutaneous Approach (ICD-10-PCS; 2021-08-13)
PROC: 0DJD8ZZ Inspection of Lower Intestinal Tract, Via Natural or Artificial Opening Endoscopic (ICD-10-PCS; 2021-08-16)
DX: K29.01 Acute gastritis with bleeding (principal); D62 Acute posthemorrhagic anemia; G12.21 Amyotrophic lateral sclerosis; J90 Pleural effusion, not elsewhere classified; J96.10 Chronic respiratory failure, unspecified whether with hypoxia or hypercapnia; I24.8 Other forms of acute ischemic heart disease; Z99.11 Dependence on respirator [ventilator] status; E44.0 Moderate protein-calorie malnutrition; K21.00 Gastro-esophageal reflux disease with esophagitis, without bleeding; K64.8 Other hemorrhoids; J98.6 Disorders of diaphragm; D72.829 Elevated white blood cell count, unspecified; Z20.822 Contact with and (suspected) exposure to COVID-19; R13.10 Dysphagia, unspecified; Z79.82 Long term (current) use of aspirin; Z86.711 Personal history of pulmonary embolism; Z90.49 Acquired absence of other specified parts of digestive tract; Z93.0 Tracheostomy status; Z93.1 Gastrostomy status
CPT/HCPCS: 36415; 36430; 43239; 45378; 71045; 76376; 76856-TC; 80048; 80053; 82272; 82607; 82728; 83540; 83550; 83615; 83735; 83880; 84484; 85025; 85044; 86886; 86900; 86901; 86920; 87040; 87081; 88305; 88312; 88313; 93005; 93306; 94002; 94003; 94640; 94760; 96374; 96375; 99285; C9113; G0378; J1200; J2001; J2175; J2250; J2270; J2405; J2543; J2916; J3010; J3370; J7613; J7626; P9021; Q0163; Q9964; Q9967